=== PATIENT | male | born 1955 | race Caucasian/White ===

== ENCOUNTER → 2016-12-24 | Outpatient (CLI) | payer OTHER | END | disposition home or self-care (01) | LOC: CDC 08:42 | DX: Z01.810 Encounter for preprocedural cardiovascular examination (principal); H33.022 Retinal detachment with multiple breaks, left eye; I48.91 Unspecified atrial fibrillation; I45.10 Unspecified right bundle-branch block | CPT/HCPCS: 93000 ==